=== PATIENT | male | born 1970 | race Caucasian/White ===

== ENCOUNTER 2017-03-18 18:18 | Observation (INO) | payer MEDICARE, MEDICAID ==
[~2017-03-18] VITALS: Ht 188 cm; Wt 88.8 kg
[2017-03-18] MEDS ORDERED: ONDANSETRON 4MG/2ML VIAL (J2405) IV ONE (21:30)
[2017-03-18] MEDS ORDERED: NS 500 ML IV ONE (21:30)
[2017-03-18 22:04] LABS: ADD MORPHOLOGY? YES; BASO % 0.9 % (0.0-1.0); EOS % 0.7 % (0.0-3.0); LARGE UNSTAINED CELL # 0.1 K/mm3 (0.0-0.4); LARGE UNSTAINED CELL % 1.3 % (0.0-4.0); LYMPH # 1.2 K/mm3 (1.5-4.5); LYMPH % 27.3 % (24.0-44.0); MEAN CORPUSCULAR HGB CONC 32.4 g/dl (32.0-36.5); MEAN CORPUSCULAR VOLUME 107.9 fl (80.0-96.0); MONO # 0.3 K/mm3 (0.0-0.8); NEUTROPHILS # 2.6 K/mm3 (1.8-7.7); NEUTROPHILS % 63.7 % (36.0-66.0); PLATELET COUNT, AUTOMATED 232 k/mm3 (150-450); RED CELL DISTRIBUTION WIDTH 13.7 % (11.5-14.5); WHITE BLOOD COUNT 4.1 K/mm3 (4.0-10.0)
[2017-03-18 22:29] LABS: ALKALINE PHOSPHATASE 169 U/L (45-117); ALT/SGPT 121 U/L (12-78); AST/SGOT 305 U/L (15-37); BILIRUBIN,DIRECT 0.3 MG/DL (0.0-0.2); BILIRUBIN,TOTAL 0.7 MG/DL (0.2-1.0); BLOOD UREA NITROGEN 7 MG/DL (7-18); CALCIUM LEVEL 8.7 MG/DL (8.5-10.1); CHLORIDE LEVEL 101 MEQ/L (98-107); CREATININE FOR GFR 0.75 MG/DL (0.70-1.30); GLUCOSE, FASTING 92 MG/DL (70-105); POTASSIUM SERUM 4.6 MEQ/L (3.5-5.1); SODIUM LEVEL 139 MEQ/L (136-145); TOTAL PROTEIN 6.8 GM/DL (6.4-8.2)
[2017-03-18 22:35] LABS: FREE T4 0.77 NG/DL (0.76-1.46)
[2017-03-18 22:37] LABS: METHADONE URINE NEGATIVE (NEGATIVE)
[2017-03-18 22:38] LABS: ALBUMIN 3.3 GM/DL (3.2-5.2); ALBUMIN/GLOBULIN RATIO 0.94 (1.00-1.93); ANION GAP 14 MEQ/L (8-16); CARBON DIOXIDE LEVEL 24 MEQ/L (21-32)
--- NOTE | 2017-03-18 22:38 | REP ---
Clinical: Chest pain . Comparison: 07/10/2010 . Technique: PA and lateral. Findings: The mediastinum and cardiac silhouette are normal. The lung stall[place] are clear and without acute consolidation, effusion, or pneumothorax. The skeletal structures are intact and normal. Impression: 1. No acute cardiopulmonary process. Signed by Henry Chew MD 03/18/2017 10:30 P
--- NOTE | 2017-03-18 22:53 | REP ---
Clinical: Upper abdominal pain with vomiting. Findings: Hepatomegaly and diffuse fatty infiltration to the liver is appreciated without focal hepatic lesion identified. The gallbladder demonstrates sludge and small gallstones and early acute cholecystitis cannot be excluded. Spleen, pancreas, bilateral adrenal glands and kidneys are normal for noncontrast evaluation. The enteric system is without obstruction or definite acute inflammatory process, but subtle inflammatory changes to the cecal region cannot be excluded and should be correlated clinically. Colonic diverticulosis noted without acute diverticulitis. Pelvis demonstrates normal bladder and age appropriate prostate/seminal vesicles. No pelvic fluid or ascites. No free air. No obvious adenopathy. Abdominal aorta without aneurysm. Surrounding musculoskeletal structures without focal osseous abnormality. Lung bases are clear. Impression: 1. Hepatomegaly and hepatosteatosis without focal hepatic lesion identified. 2. Cannot exclude early acute cholecystitis and correlation may be warranted including ultrasound evaluation. 3. Cannot exclude very mild inflammatory changes to the cecal region. 4. Scattered diverticulosis without evidence for acute diverticulitis. 5. No pelvic fluid/ascites, free air, mass or adenopathy. Signed by Henry Chew MD 03/18/2017 10:45 P
--- NOTE | 2017-03-18 23:40 | REPUSA ---
Clinical history: Right upper quadrant pain. Findings: The pancreas is limited in visualization secondary to overlying bowel gas, but appears kristian sly unremarkable. The liver demonstrates increased echotexture and echogenicity, with no mass lesions . The gallbladder contains several echogenic non-shadowing and non-mobile foci. No gallstones identi fied. The common bile duct measures 6 mm and is within normal limits. The right kidney measures 12.5 cm in length, without evidence of hydronephrosis or nephrolithiasis. There is no ascites. Impression: Fatty infiltration of the liver. Gallbladder polyps.
[2017-03-19] MEDS ORDERED: ACETAMINOPHEN TAB 650MG DOSE (2X325MG) PO PRN (00:15)
[2017-03-19] MEDS ORDERED: ONDANSETRON 4 MG TAB (S0181) PO PRN (00:15)
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
[2017-03-19 01:29] LABS: RETIC HEMOGLOBIN CONTENT CHr 35.2 PG (24-36); RETICULOCYTE ABSOLUTE ADVIA212 70 x10(9)/L (17-77)
[2017-03-19 01:37] LABS: FERRITIN 1307 NG/ML (26-388); PERCENT SATURATION 38.7 % (19.7-50.0); TOTAL IRON BINDING CAPACITY 204 UG/DL (250-450)
[2017-03-19 02:10] VITALS: BP 126/93
[2017-03-19] MEDS: NS 1,000 ML IV SCH ×2 (02:24→10:15)
[2017-03-19 06:00] VITALS: BP 141/90
[2017-03-19] MEDS ORDERED: ENOXAPARIN 40 MG/0.4 ML SYRINGE (J1650) SC SCH (09:00)
[2017-03-19] MEDS ORDERED: PANTOPRAZOLE 40MG TAB (PROTONIX) PO SCH (09:00)
[2017-03-19] MEDS ORDERED: PANTOPRAZOLE 40MG INJ (PROTONIX) (C9113) IV SCH (09:00)
[2017-03-19 10:00] VITALS: BP 135/91
[2017-03-19 11:25] LABS: VITAMIN B12 LEVEL 456 PG/ML
[2017-03-19 11:26] LABS: FOLATE 2.7 NG/ML
--- NOTE | 2017-03-19 20:38 | IPN ---
DATE: 03/19/2017 Mr. Daly has no complaints of pain, chest pain, or shortness of breath. This morning, he is able to ambulate without difficulty and has been walking outside of his room. He has concerns about his housing and about his water quality at home. Temperature 99.1, pulse 104, respiratory rate 18, blood pressure 135/91, 97% on room air. Intake and output are net zero. There were no morning labs drawn. Vitamin B12 was 456, folate 2.7. Toxicology screen last night was notable for an alcohol level of 0.066. Abdominal ultrasound shows fatty liver. CT of the abdomen and pelvis shows hepatosteatosis and hepatomegaly. The patient seems to be an appropriate historian. He is somewhat focused on water quality and heavy metal exposure. I did not have an opportunity to examine him today. My assessment is as follows: 1. This is a 47-year-old who had difficulty with ambulation and numbness at the time of presentation. He certainly has no difficulty with ambulation at this point. Folate and B12 levels are appropriate. 2. The patient had complained of epigastric pain, which he no longer has apparently. He has black stools. He did not have labs this morning. No stools were provided for sample. 3. The patient has a history of inflammatory bowel disease, but has never had a workup. 4. The patient has a fatty liver. 5. The patient has chronic fatigue syndrome. 6. The patient has intermittent chest pain. 7. The patient has concerns about his housing situation and about heavy metal exposure. I did discuss this case with him, the nursing call center supervisor from the floor, and the social welfare research worker about possibilities for changing his living situation. He does have a car and is able to get to [facility]. He is looking into Section 8 housing as apparently he has some relationship with the previous provider of Section 8 housing from his previous living arrangement in [place], [place]. At this point, we could offer the patient further workup and treatment. We have not sent stools, there are no repeat labs available for me to review, but the patient is choosing to leave AGAINST MEDICAL ADVICE.
--- NOTE | 2017-03-20 09:06 | ECGEPIP ---
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
== END 2017-03-19 11:19 | disposition left against medical advice (07) ==
LOC: M ED 18:18 → M ED INP 18:19 → M MSPAV 03-19 02:17
PROVIDERS: ADMIT Internal Medicine; ATTEND Internal Medicine
DX: R26.9 Unspecified abnormalities of gait and mobility (principal); Z53.21 Procedure and treatment not carried out due to patient leaving prior to being seen by health care provider; K58.8 Other irritable bowel syndrome; K76.0 Fatty (change of) liver, not elsewhere classified; R53.82 Chronic fatigue, unspecified; M79.7 Fibromyalgia; G47.00 Insomnia, unspecified; R07.9 Chest pain, unspecified; R10.13 Epigastric pain; D64.9 Anemia, unspecified; Z88.0 Allergy status to penicillin; Z88.8 Allergy status to other drugs, medicaments and biological substances
CPT/HCPCS: 36415; 71020; 74176; 76705; 80048; 80076; 80307; 82550; 82553; 82607; 82728; 82746; 83550; 83690; 84207; 84439; 84443; 84484; 85025; 85046; 93005; 93041; 94760; 99285; G0378; G0480

== ENCOUNTER 2017-09-30 20:42 | Emergency (ER) | payer MEDICARE, MEDICAID ==
[2017-09-30 22:20] LABS: HEMATOCRIT 32.3 % (42.0-52.0); MEAN CORPUSCULAR HEMOGLOBIN 34.5 pg (27.0-33.0); MEAN CORPUSCULAR HGB CONC 34.1 g/dl (32.0-36.5); MEAN CORPUSCULAR VOLUME 101.3 fl (80.0-96.0); PLATELET COUNT, AUTOMATED 116 10^3/uL (150-450); RED BLOOD COUNT 3.19 10^6/uL (4.30-6.10); RED CELL DISTRIBUTION WIDTH 16.7 % (11.5-14.5); WHITE BLOOD COUNT 7.6 10^3/uL (4.0-10.0)
[2017-09-30 22:48] LABS: ACETAMINOPHEN LEVEL < 2.0 UG/ML (10.0-30.0); ALBUMIN 2.3 GM/DL (3.2-5.2); ALKALINE PHOSPHATASE 210 U/L (45-117); ALT/SGPT 39 U/L (12-78); ANION GAP 14 MEQ/L (8-16); AST/SGOT 136 U/L (7-37); BILIRUBIN,DIRECT 0.3 MG/DL (0.0-0.2); BILIRUBIN,TOTAL 0.7 MG/DL (0.2-1.0); BLOOD UREA NITROGEN 6 MG/DL (7-18); CALCIUM LEVEL 7.8 MG/DL (8.5-10.1); CARBON DIOXIDE LEVEL 23 MEQ/L (21-32); CHLORIDE LEVEL 104 MEQ/L (98-107); CREATININE FOR GFR 0.55 MG/DL (0.70-1.30); GLOMERULAR FILTRATION RATE > 60.0 (>60); GLUCOSE, FASTING 84 MG/DL (70-100); POTASSIUM SERUM 4.1 MEQ/L (3.5-5.1); SALICYLATE LEVEL < 1.7 MG/DL (5.0-30.0); SODIUM LEVEL 141 MEQ/L (136-145); TOTAL PROTEIN 6.9 GM/DL (6.4-8.2)
[2017-10-01] MEDS: MULTIVITAMIN -ADULT INJECTION 10 ML, THIAMINE INJection 100 MG, FOLIC ACID 1 MG in NS 1... IV
== END 2017-10-01 01:44 | disposition left against medical advice (07) ==
LOC: M ED 10-01 01:44
DX: F10.929 Alcohol use, unspecified with intoxication, unspecified (principal); R46.0 Very low level of personal hygiene; Z88.8 Allergy status to other drugs, medicaments and biological substances; Z88.1 Allergy status to other antibiotic agents; Z88.5 Allergy status to narcotic agent; Z88.0 Allergy status to penicillin
CPT/HCPCS: G0480